=== PATIENT | male | born 1930 | race Two or more races ===

== ENCOUNTER 2017-09-08 16:54 | Emergency (ER) | payer OTHER ==
[~2017-09-08] VITALS: Ht 157.5 cm; Wt 56.7 kg
[~2017-09-08 16:54] MED LIST: ADULT ASPIRIN81 MG PO; ASA81 MG PO; COREG CR10 MG PO; COZAAR100 MG PO; COZAAR25 MG PO; Coreg 12.5MG TABLET PO; DIGOXIN125 MCG PO; INDUR; ISORDIL10 MG PO; LANOXIN125 MCG PO; LASIX20 MG PO; NITRO-DUR1 PATCH .1 TD; PEPCID40 MG PO; UROXATRAL10 MG PO; XARELTO15 MG PO; ZOFRAN4 MG PO; ZYNCOF 20-400120 ML PO
== END 2017-09-08 22:41 | disposition home or self-care (01) ==
LOC: ER 16:54 → CPU-OBS 16:58 → ER 16:58 → CPU-OBS 22:41 → ER 09-09 01:02
DX: R07.89 Other chest pain (principal)

== ENCOUNTER 2018-04-10 16:40 | Emergency (ER) | payer OTHER ==
[~2018-04-10] VITALS: Ht 160 cm; Wt 66.2 kg
== END 2018-04-10 23:01 | disposition home or self-care (01) ==
LOC: ER 16:40
DX: R07.89 Other chest pain (principal)

== ENCOUNTER 2018-07-13 13:16 | Emergency (ER) | payer OTHER ==
[~2018-07-13] VITALS: Ht 157.5 cm; Wt 66.2 kg
== END 2018-07-13 17:51 | disposition home or self-care (01) ==
LOC: ER 13:16
DX: M25.562 Pain in left knee (principal)

== ENCOUNTER 2018-09-08 09:17 | Emergency (ER) | payer OTHER ==
[~2018-09-08] VITALS: Ht 152.4 cm; Wt 66.2 kg
== END 2018-09-08 15:52 | disposition home or self-care (01) ==
LOC: ER 09:17 → CPU-OBS 09:43 → ER 09:43
DX: R07.89 Other chest pain (principal)

== ENCOUNTER 2018-12-25 10:26 | Emergency (ER) | payer OTHER ==
[~2018-12-25] VITALS: Ht 149.9 cm; Wt 68.5 kg
== END 2018-12-25 16:05 | disposition home or self-care (01) ==
LOC: ER 10:26 → CPU-OBS 10:54 → ER 10:54
DX: R07.89 Other chest pain (principal); R10.13 Epigastric pain